=== PATIENT | male | born 1970 | race Caucasian/White ===

== ENCOUNTER 2018-09-06 15:00 | Inpatient (IN) | payer OTHER ==
[2018-09-06 17:07] VITALS: BMI 36.6
--- NOTE | 2018-09-06 20:43 | HP ---
CIWA Score - Admission Criteria OASAS Guidelines: Admission for Medically Managed Detox: Requires at least one of the followin. CIWA greater than 12 2. Seizures within the past 24 hours 3. Delirium tremens within the past 24 hours 4. Hallucinations within the past 24 hours 5. Acute intervention needed for co occurring medical disorder 6. Acute intervention needed for co occurring psychiatric disorder 7. Severe withdrawal that cannot be handled at a lower level of care (continued vomiting, continued diarrhea, abnormal vital signs) requiring intravenous medication and/or fluids 8. Admission ROS BHS - HPI Chief Complaint: Seeking admission to Rehab. Allergies/Adverse Reactions: Allergies Allergy/AdvReac Type Severity Reaction Status Date / Time No Known Allergies Allergy Verified 09/06/18 17:41 History of Present Illness: 48 years old male with a history of alcohol and benzodiazepine dependence is seeking admission to rehab. Patient WAS in Rehab. 5 years ago at [facility]. He has medical history of depression. He reports suicide at age 32 and denies suicidal ideation at this time. This is his first admission at [facility]. He is on methadone 120mg tablet oral at [facility]. LDM is today, 09/10/2018. Dose is to be confirmed by the nurse. Exam Limitations: No Limitations - Ebola screening Have you traveled outside of the country in the last 21 days: No Have you had contact with anyone from an Ebola affected area: No Have you been sick,other than usual withdrawal symptoms: No Do you have a fever: No - Review of Systems Constitutional: No Symptoms Reported EENT: reports: No Symptoms Reported Respiratory: reports: No Symptoms reported Cardiac: reports: No Symptoms Reported GI: reports: No Symptoms Reported : reports: No Symptoms Reported Musculoskeletal: reports: No Symptoms Reported Integumentary: reports: No Symptoms Reported Neuro: reports: No Symptoms reported Endocrine: reports: No Symptoms Reported Hematology: reports: No Symptoms Reported Psychiatric: reports: No Sypmtoms Reported, Mood/Affect Appropiate, Orientated x3 Other Systems: Reviewed and Negative Patient History - Patient Medical History Hx Anemia: No Hx Asthma: No Hx Chronic Obstructive Pulmonary Disease (COPD): No Hx Cancer: No Hx Cardiac Disorders: No Hx Congestive Heart Failure: No Hx Hypertension: No Hx Hypercholesterolemia: No HX Cerebrovascular Accident: No Hx Seizures: Yes Hx Dementia: No Hx Diabetes: No Hx Gastrointestinal Disorders: No Hx Liver Disease: No Hx Genitourinary Disorders: No Hx Sexually Transmitted Disorders: No Hx Renal Disease (ESRD): No Hx Thyroid Disease: No Hx Human Immunodeficiency Virus (HIV): No (Negative 2018) Hx Hepatitis C: No Hx Depression: Yes (Seroquel, Gabapentin) Hx Suicide Attempt: Yes (Attempt at age 32, denies suicidal ideation at this time) Hx Bipolar Disorder: Yes (Seroquel, Gabapentin) Hx Schizophrenia: No - Patient Surgical History Past Surgical History: No - PPD History Previous Implant?: Yes Documented Results: Negative w/o proof Implanted On Prior [facility] Admission?: No PPD to be Administered?: Yes - Reproductive History Patient is a Female of Child Bearing Age (11 -55 yrs old): No (MALE) - Smoking Cessation Smoking history: Current every day smoker Have you smoked in the past 12 months: Yes Aproximately how many cigarettes per day: 10 Hx Chewing Tobacco Use: No Initiated information on smoking cessation: Yes 'Breaking Loose' booklet given: 09/06/18 - Substance & Tx. History Hx Alcohol Use: Yes Hx Substance Use: Yes Substance Use Type: Alcohol, Marijuana, Prescribed Hx Substance Use Treatment: Yes ([facility], [place]) - Substances Abused Alcohol Route: Oral Frequency: Daily Amount used: BEER - 40 oz João 45, Vodka 1 Pint Age of first use: 13 Date of Last Use: 08/30/18 Family Disease History - Family Disease History Family History: Denies Admission Physical Exam BHS - Vital Signs Vital Signs: Vital Signs - 24 hr 09/06/18 17:02 Temperature 98.9 F Pulse Rate 93 H Respiratory 18 Rate Blood Pressure 129/82 - Physical General Appearance: Yes: No Apparent Distress HEENTM: Yes: EOMI, Normal ENT Inspection, Normocephalic, Normal Voice, DEA Respiratory: Yes: Lungs Clear, Normal Breath Sounds, No Respiratory Distress Neck: Yes: Supple Breast: Yes: Breast Exam Deferred Cardiology: Yes: Regular Rhythm, Regular Rate Abdominal: Yes: Normal Bowel Sounds Genitourinary: Yes: Within Normal Limits Back: Yes: Normal Inspection Musculoskeletal: Yes: Within Normal Limits Extremities: Yes: Normal Inspection Neurological: Yes: track superintendent II-XII NML intact, Alert, Normal Mood/Affect Integumentary: Yes: Warm Lymphatic: Yes: Within Normal Limits - Diagnostic (1) Uncomplicated alcohol dependence Current Visit: Yes Status: Chronic (2) Marijuana dependence Current Visit: Yes Status: Chronic (3) Methadone maintenance therapy patient Current Visit: Yes Status: Chronic (4) Nicotine dependence Current Visit: Yes Status: Chronic Qualifiers: Nicotine product type: cigarettes Substance use status: uncomplicated Qualified Code(s): F17.210 - Nicotine dependence, cigarettes, uncomplicated (5) Depression Current Visit: Yes Status: Chronic Cleared for Admission [facility] - Detox or Rehab [facility] Level of Care: Observation Bed Claeared for Rehab Admission: Yes [facility] Breath Alcohol Content Breath Alcohol Content: 0 Urine Drug Screen - Results Drug Screen Negative: No Urine Drug Screen Results: THC-Marijuana, BAR-Barbiturates, MTD-Methadone Inpatient Rehab Admission - Initial Determination Are CD services needed?: Yes Free of communicable disease: Yes Not in need of hospitalization: Yes - Rehab Admission Criteria Previous failed treatment: Yes Poor recovery environment: Yes Comorbidities: Yes Lacks judgement: No Patient is meeting Inpatient Rehab admission criteria:: Yes
[2018-09-06] MEDS ORDERED: ACETAMINOPHEN 325 MG TABLET (FP) PO PRN (20:56)
[2018-09-06] MEDS ORDERED: NICOTINE POLACRILEX 2 MG GUM BUC PRN (20:56)
[2018-09-06] MEDS ORDERED: MAGNESIUM CITRATE 300 ML BOTTLE PO PRN (20:56)
[2018-09-06] MEDS ORDERED: LOPERAMIDE HCL 2 MG CAPSULE PO PRN (20:56)
[2018-09-06] MEDS ORDERED: P-EPHED 60MG/TRIPROLIDI 2.5MG TABLET PO PRN (20:56)
[2018-09-06] MEDS ORDERED: MAG HYDROX/AL HYDROX/SIMETH 30 ML UNIT-DOSE CUP PO PRN (20:56)
--- NOTE | 2018-09-06 21:15 | HP ---
CIWA Score Nausea/Vomitin (vomiting x 2) Muscle Tremors: 3 Anxiety: 3 Agitation: 1-Slight > Activity Paroxysmal Sweats: 1-Minimal Palms Moist Orientation: 2-Disoriented Date<2 days Tacttile Disturbances: 0-None Auditory Disturbances: 0-None Visual Disturbances: 0-None Headache: 2-Mild CIWA-Ar Total Score: 15 - Admission Criteria OASAS Guidelines: Admission for Medically Managed Detox: Requires at least one of the followin. CIWA greater than 12 2. Seizures within the past 24 hours 3. Delirium tremens within the past 24 hours 4. Hallucinations within the past 24 hours 5. Acute intervention needed for co occurring medical disorder 6. Acute intervention needed for co occurring psychiatric disorder 7. Severe withdrawal that cannot be handled at a lower level of care (continued vomiting, continued diarrhea, abnormal vital signs) requiring intravenous medication and/or fluids 8. Admission ROS [facility] Chief Complaint: Alcohol withdrawal symptoms Allergies/Adverse Reactions: Allergies Allergy/AdvReac Type Severity Reaction Status Date / Time No Known Allergies Allergy Verified 09/06/18 17:41 History of Present Illness: 48 years old male with a long history of alcohol dependence is seeking admission to detox. Patient has been in multiple detox, last at [place], [place]. He reports 14 years of sobriety.He has medical history of asthma and depression. He denies suicidal ideation at this time. This is his first admission to [facility]. - Ebola screening Have you traveled outside of the country in the last 21 days: No Have you had contact with anyone from an Ebola affected area: No Have you been sick,other than usual withdrawal symptoms: No Do you have a fever: No Patient History - Patient Medical History Hx Anemia: No Hx Asthma: No Hx Chronic Obstructive Pulmonary Disease (COPD): No Hx Cancer: No Hx Cardiac Disorders: No Hx Congestive Heart Failure: No Hx Hypertension: No Hx Hypercholesterolemia: No HX Cerebrovascular Accident: No Hx Seizures: Yes Hx Dementia: No Hx Diabetes: No Hx Gastrointestinal Disorders: No Hx Liver Disease: No Hx Genitourinary Disorders: No Hx Sexually Transmitted Disorders: No Hx Renal Disease (ESRD): No Hx Thyroid Disease: No Hx Human Immunodeficiency Virus (HIV): No (Negative 2018) Hx Hepatitis C: No Hx Depression: Yes (Seroquel, Gabapentin) Hx Suicide Attempt: Yes (Attempt at age 32, denies suicidal ideation at this time) Hx Bipolar Disorder: Yes (Seroquel, Gabapentin) Hx Schizophrenia: No - Patient Surgical History Past Surgical History: No - PPD History Previous Implant?: Yes Documented Results: Negative w/o proof Implanted On Prior R Admission?: No - Smoking Cessation Smoking history: Current every day smoker Have you smoked in the past 12 months: Yes Aproximately how many cigarettes per day: 10 Hx Chewing Tobacco Use: No Initiated information on smoking cessation: Yes - Substances Abused Alcohol Route: Oral Frequency: Daily Amount used: BEER - 40 oz João 45, Vodka 1 Pint Age of first use: 13 Date of Last Use: 08/30/18 Admission Physical Exam BHS - Vital Signs Vital Signs: Vital Signs - 24 hr 09/06/18 17:02 Temperature 98.9 F Pulse Rate 93 H Respiratory 18 Rate Blood Pressure 129/82 - Diagnostic (1) Uncomplicated alcohol dependence Current Visit: Yes Status: Chronic (2) Marijuana dependence Current Visit: Yes Status: Chronic (3) Methadone maintenance therapy patient Current Visit: Yes Status: Chronic (4) Nicotine dependence Current Visit: Yes Status: Chronic Qualifiers: Nicotine product type: cigarettes Substance use status: uncomplicated Qualified Code(s): F17.210 - Nicotine dependence, cigarettes, uncomplicated (5) Depression Current Visit: Yes Status: Chronic BHS Breath Alcohol Content Breath Alcohol Content: 0 Urine Drug Screen - Results Drug Screen Negative: No Urine Drug Screen Results: THC-Marijuana, BAR-Barbiturates, MTD-Methadone
[2018-09-06] MEDS ORDERED: MELATONIN 5 MG TABLETS PO PRN (22:00)
[2018-09-06] MEDS ORDERED: TUBERCULIN PPD 5 TU/0.1ML VIAL ID ONE (22:52)
[2018-09-06] MEDS: IBUPROFEN 400 MG TABLET (FP) PO PRN (22:52)
[2018-09-06] MEDS: THIAMINE HCL 100 MG TABLET (FP) PO SCH (22:52)
[2018-09-07 02:55] LABS: URINE APPEARANCE CLEAR; URINE BILIRUBIN NEGATIVE (<2.0 mg/dL); URINE COLOR YELLOW; URINE GLUCOSE (UA) NEGATIVE (NEGATIVE); URINE KETONE NEGATIVE (NEGATIVE); URINE LEUK ESTERASE NEGATIVE (NEGATIVE); URINE NITRITE NEGATIVE (NEGATIVE); URINE PROTEIN NEGATIVE (NEGATIVE); URINE UROBILINOGEN NEGATIVE mg/dL (0.2-1.0)
[2018-09-07] MEDS: NICOTINE 14 MG/24 HOURS TOPICAL PATCH TD SCH (10:17)
[2018-09-07] MEDS: PRENATAL VITAMINS W/ FOLIC ACID TABLET (FP) PO SCH (10:17)
[2018-09-07] MEDS ORDERED: METHADONE HCL 40 MG DISPERSABLE TABLET PO ONE (11:35)
--- NOTE | 2018-09-07 11:56 | EKG ---
Test Reason : Blood Pressure : / mmHG Vent. Rate : 067 BPM Atrial Rate : 067 BPM P-R Int : 180 ms QRS Dur : 092 ms QT Int : 436 ms P-R-T Axes : 036 063 058 degrees QTc Int : 460 ms NORMAL SINUS RHYTHM NORMAL ECG NO PREVIOUS ECGS AVAILABLE Confirmed by RICA ROSALES MD ([id number]) on 09/07/2018 11:55:49 AM Referred By: Confirmed By:RICA ROSALES MD
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
[2018-09-07] MEDS: QUEtiapine FUMARATE 400 MG TABLET PO SCH ×2 (13:53→21:16)
[2018-09-07] MEDS: GABAPENTIN 400 MG CAPSULE (FP) PO SCH ×2 (13:54→21:16)
[2018-09-07 16:12] LABS: HEMATOCRIT 41.4 % (35.4-49); MCH 29.3 pg (25.7-33.7); MCHC 33.9 g/dl (32.0-35.9); MEAN CELL VOLUME 86.3 fl (80-96); MEAN PLT VOLUME 7.6 fl (7.5-11.1); PLATELET COUNT 397 K/MM3 (134-434); WHITE BLOOD COUNT 10.1 K/mm3 (4.0-10.0)
[2018-09-07 16:21] LABS: ALBUMIN 3.9 g/dl (3.4-5.0); ALK PHOS 84 U/L (45-117); ANION GAP 7 MMOL/L (8-16); BILIRUBIN,TOTAL 0.3 mg/dL (0.2-1); BLOOD UREA NITROGEN 17 mg/dL (7-18); CALCIUM 9.3 mg/dL (8.5-10.1); CHLORIDE 102 mmol/L (98-107); CO2 29 mmol/L (21-32); CREATININE 0.9 mg/dL (0.55-1.3); GLUCOSE,RANDOM 102 mg/dL (74-106); POTASSIUM 4.2 mmol/L (3.5-5.1); SGOT/AST 22 U/L (15-37); SGPT/ALT 32 U/L (13-61); SODIUM 138 mmol/L (136-145); TOT PROT 7.6 g/dl (6.4-8.2)
[2018-09-07] MEDS: THIAMINE HCL 100 MG TABLET (FP) PO SCH (21:16)
[2018-09-08] MEDS: METHADONE HCL 40 MG DISPERSABLE TABLET PO SCH (06:35)
[2018-09-08] MEDS: QUEtiapine FUMARATE 400 MG TABLET PO SCH ×2 (09:49→21:21)
[2018-09-08] MEDS: NICOTINE 14 MG/24 HOURS TOPICAL PATCH TD SCH (09:49)
[2018-09-08] MEDS: GABAPENTIN 400 MG CAPSULE (FP) PO SCH ×2 (09:49→21:21)
[2018-09-08] MEDS: PRENATAL VITAMINS W/ FOLIC ACID TABLET (FP) PO SCH (09:49)
[2018-09-08] MEDS: THIAMINE HCL 100 MG TABLET (FP) PO SCH (21:21)
[2018-09-09] MEDS: METHADONE HCL 40 MG DISPERSABLE TABLET PO SCH (06:31)
[2018-09-09] MEDS: MAGNESIUM HYDROX 2400MG/30ML ORAL SUSPENSION 30 ML CUP PO PRN (06:35)
[2018-09-09] MEDS: NICOTINE 14 MG/24 HOURS TOPICAL PATCH TD SCH (09:38)
[2018-09-09] MEDS: PRENATAL VITAMINS W/ FOLIC ACID TABLET (FP) PO SCH (09:38)
[2018-09-09] MEDS: QUEtiapine FUMARATE 400 MG TABLET PO SCH ×2 (09:38→21:15)
[2018-09-09] MEDS: GABAPENTIN 400 MG CAPSULE (FP) PO SCH ×2 (09:38→21:15)
[2018-09-09] MEDS: hydrOXYzine PAMOATE 25 MG CAPSULE (FP) PO PRN (09:39)
[2018-09-09] MEDS: THIAMINE HCL 100 MG TABLET (FP) PO SCH (21:15)
[2018-09-10] MEDS: METHADONE HCL 40 MG DISPERSABLE TABLET PO SCH (06:33)
[2018-09-10] MEDS: MAGNESIUM HYDROX 2400MG/30ML ORAL SUSPENSION 30 ML CUP PO PRN (08:20)
[2018-09-10] MEDS: PRENATAL VITAMINS W/ FOLIC ACID TABLET (FP) PO SCH (09:40)
[2018-09-10] MEDS: QUEtiapine FUMARATE 400 MG TABLET PO SCH ×2 (09:40→21:20)
[2018-09-10] MEDS: GABAPENTIN 400 MG CAPSULE (FP) PO SCH ×2 (09:40→21:20)
[2018-09-10] MEDS: NICOTINE 14 MG/24 HOURS TOPICAL PATCH TD SCH (09:40)
[2018-09-10] MEDS: hydrOXYzine PAMOATE 25 MG CAPSULE (FP) PO PRN ×2 (09:41→21:20)
[2018-09-10] MEDS: THIAMINE HCL 100 MG TABLET (FP) PO SCH (21:20)
[2018-09-11] MEDS: METHADONE HCL 40 MG DISPERSABLE TABLET PO SCH (06:12)
[2018-09-11] MEDS: NICOTINE 14 MG/24 HOURS TOPICAL PATCH TD SCH (10:50)
[2018-09-11] MEDS: PRENATAL VITAMINS W/ FOLIC ACID TABLET (FP) PO SCH (10:50)
[2018-09-11] MEDS: QUEtiapine FUMARATE 400 MG TABLET PO SCH ×2 (10:50→21:18)
[2018-09-11] MEDS: GABAPENTIN 400 MG CAPSULE (FP) PO SCH ×2 (10:50→21:18)
[2018-09-11] MEDS: hydrOXYzine PAMOATE 25 MG CAPSULE (FP) PO PRN ×2 (10:52→21:19)
[2018-09-11] MEDS: THIAMINE HCL 100 MG TABLET (FP) PO SCH (21:18)
[2018-09-12] MEDS: IBUPROFEN 400 MG TABLET (FP) PO PRN (03:05)
[2018-09-12] MEDS: METHADONE HCL 40 MG DISPERSABLE TABLET PO SCH (06:09)
[2018-09-12] MEDS: PRENATAL VITAMINS W/ FOLIC ACID TABLET (FP) PO SCH (10:35)
[2018-09-12] MEDS: hydrOXYzine PAMOATE 25 MG CAPSULE (FP) PO PRN ×2 (10:35→21:29)
[2018-09-12] MEDS: QUEtiapine FUMARATE 400 MG TABLET PO SCH ×2 (10:35→21:28)
[2018-09-12] MEDS: NICOTINE 14 MG/24 HOURS TOPICAL PATCH TD SCH (10:35)
[2018-09-12] MEDS: GABAPENTIN 400 MG CAPSULE (FP) PO SCH ×2 (10:35→21:28)
[2018-09-12] MEDS: THIAMINE HCL 100 MG TABLET (FP) PO SCH (21:28)
[2018-09-13] MEDS: METHADONE HCL 40 MG DISPERSABLE TABLET PO SCH (06:13)
[2018-09-13] MEDS: GABAPENTIN 400 MG CAPSULE (FP) PO SCH ×2 (10:09→21:21)
[2018-09-13] MEDS: QUEtiapine FUMARATE 400 MG TABLET PO SCH ×2 (10:09→21:21)
[2018-09-13] MEDS: NICOTINE 14 MG/24 HOURS TOPICAL PATCH TD SCH (10:09)
[2018-09-13] MEDS: PRENATAL VITAMINS W/ FOLIC ACID TABLET (FP) PO SCH (10:09)
[2018-09-13] MEDS: hydrOXYzine PAMOATE 25 MG CAPSULE (FP) PO PRN ×2 (10:11→21:21)
[2018-09-13] MEDS: guaiFENesin/D-METHORPHAN HB 10 ML UNIT-DOSE CUPS PO PRN (17:37)
[2018-09-13] MEDS: IBUPROFEN 400 MG TABLET (FP) PO PRN (17:37)
[2018-09-13] MEDS: MENTHOL/PHENOL 1 EACH UD MM PRN (17:39)
[2018-09-13] MEDS: THIAMINE HCL 100 MG TABLET (FP) PO SCH (21:21)
[2018-09-14] MEDS: METHADONE HCL 40 MG DISPERSABLE TABLET PO SCH (06:18)
[2018-09-14] MEDS: hydrOXYzine PAMOATE 25 MG CAPSULE (FP) PO PRN ×2 (09:55→21:26)
[2018-09-14] MEDS: QUEtiapine FUMARATE 400 MG TABLET PO SCH ×2 (09:55→21:24)
[2018-09-14] MEDS: NICOTINE 14 MG/24 HOURS TOPICAL PATCH TD SCH (09:55)
[2018-09-14] MEDS: GABAPENTIN 400 MG CAPSULE (FP) PO SCH ×2 (09:55→21:24)
[2018-09-14] MEDS: PRENATAL VITAMINS W/ FOLIC ACID TABLET (FP) PO SCH (09:55)
[2018-09-14] MEDS: THIAMINE HCL 100 MG TABLET (FP) PO SCH (21:27)
[2018-09-15] MEDS: METHADONE HCL 40 MG DISPERSABLE TABLET PO SCH (06:12)
[2018-09-15] MEDS: MENTHOL/PHENOL 1 EACH UD MM PRN (08:31)
[2018-09-15] MEDS: NICOTINE 14 MG/24 HOURS TOPICAL PATCH TD SCH (09:53)
[2018-09-15] MEDS: GABAPENTIN 400 MG CAPSULE (FP) PO SCH ×2 (09:53→21:28)
[2018-09-15] MEDS: PRENATAL VITAMINS W/ FOLIC ACID TABLET (FP) PO SCH (09:54)
[2018-09-15] MEDS: hydrOXYzine PAMOATE 25 MG CAPSULE (FP) PO PRN ×2 (09:55→21:29)
[2018-09-15] MEDS: QUEtiapine FUMARATE 400 MG TABLET PO SCH ×2 (09:57→21:28)
[2018-09-15] MEDS: guaiFENesin/D-METHORPHAN HB 10 ML UNIT-DOSE CUPS PO PRN (09:57)
--- NOTE | 2018-09-15 10:38 | PN ---
S Progress Note (SOAP) Subjective: C/o sores on ears as a result of rubbing dry skin. Has had this issue off and on for past year. Has been putting A&D ointment on ears. C/o sore throat x 3 days. Denies cough. Objective: A&O x 3. No nasal congestion. Lungs CTA. HR: RR. Throat w/o erythema, lesions or exudate Superficial abrasion-like open areas on (L) and (R) ear lobes. No discharge noted. Vital Signs 09/15/18 09/15/18 03:30 07:06 Temperature 98.7 F Pulse Rate 75 Respiratory 18 18 Rate Blood Pressure 123/85 Lab Results WBC 10.1 K/mm3 (4.0-10.0) H 09/07/18 09:33 RBC 4.80 M/mm3 (4.00-5.60) 09/07/18 09:33 Hgb 14.0 GM/dL (11.7-16.9) 09/07/18 09:33 Hct 41.4 % (35.4-49) 09/07/18 09:33 MCV 86.3 fl (80-96) 09/07/18 09:33 MCHC 33.9 g/dl (32.0-35.9) 09/07/18 09:33 RDW 15.0 % (11.9-15.9) 09/07/18 09:33 Plt Count 397 K/MM3 (134-434) 09/07/18 09:33 Sodium 138 mmol/L (136-145) 09/07/18 09:33 Potassium 4.2 mmol/L (3.5-5.1) 09/07/18 09:33 Chloride 102 mmol/L (98-107) 09/07/18 09:33 Carbon Dioxide 29 mmol/L (21-32) 09/07/18 09:33 Anion Gap 7 MMOL/L (8-16) L 09/07/18 09:33 BUN 17 mg/dL (7-18) 09/07/18 09:33 Creatinine 0.9 mg/dL (0.55-1.3) 09/07/18 09:33 Random Glucose 102 mg/dL (74-106) 09/07/18 09:33 Calcium 9.3 mg/dL (8.5-10.1) 09/07/18 09:33 Labs reviewed. Assessment: Ear abrasion. Early poly-substance use remission Plan: Bacitracin to both ears BID Hydrortisone cream to both ears BID. Encourage Saline gargles 2-3 x day and QHS prn as directed Continue cough drops.
[2018-09-15] MEDS: THIAMINE HCL 100 MG TABLET (FP) PO SCH (21:28)
[2018-09-15] MEDS: BACITRACIN 0.9 GM PACKET TP SCH (21:30)
[2018-09-15] MEDS: HYDROCORTISONE 1% TOPICAL CREAM 30 GM TUBE TP PRN (21:32)
[2018-09-16] MEDS: METHADONE HCL 40 MG DISPERSABLE TABLET PO SCH (06:04)
[2018-09-16] MEDS: NICOTINE 14 MG/24 HOURS TOPICAL PATCH TD SCH (09:56)
[2018-09-16] MEDS: PRENATAL VITAMINS W/ FOLIC ACID TABLET (FP) PO SCH (09:56)
[2018-09-16] MEDS: QUEtiapine FUMARATE 400 MG TABLET PO SCH ×2 (09:59→21:24)
[2018-09-16] MEDS: GABAPENTIN 400 MG CAPSULE (FP) PO SCH ×2 (09:59→21:24)
[2018-09-16] MEDS: BACITRACIN 0.9 GM PACKET TP SCH ×2 (10:52→21:24)
[2018-09-16] MEDS: hydrOXYzine PAMOATE 25 MG CAPSULE (FP) PO PRN (17:22)
[2018-09-16] MEDS: THIAMINE HCL 100 MG TABLET (FP) PO SCH (21:24)
[2018-09-17] MEDS: METHADONE HCL 40 MG DISPERSABLE TABLET PO SCH (06:15)
[2018-09-17] MEDS: NICOTINE 14 MG/24 HOURS TOPICAL PATCH TD SCH (09:46)
[2018-09-17] MEDS: QUEtiapine FUMARATE 400 MG TABLET PO SCH ×2 (09:46→21:02)
[2018-09-17] MEDS: PRENATAL VITAMINS W/ FOLIC ACID TABLET (FP) PO SCH (09:46)
[2018-09-17] MEDS: GABAPENTIN 400 MG CAPSULE (FP) PO SCH ×2 (09:46→21:02)
[2018-09-17] MEDS: BACITRACIN 0.9 GM PACKET TP SCH ×2 (09:46→21:02)
[2018-09-17] MEDS: HYDROCORTISONE 1% TOPICAL CREAM 30 GM TUBE TP PRN ×2 (09:49→21:04)
[2018-09-17] MEDS: hydrOXYzine PAMOATE 25 MG CAPSULE (FP) PO PRN (15:34)
[2018-09-17] MEDS: THIAMINE HCL 100 MG TABLET (FP) PO SCH (21:02)
[2018-09-18] MEDS: METHADONE HCL 40 MG DISPERSABLE TABLET PO SCH (06:16)
[2018-09-18] MEDS: QUEtiapine FUMARATE 400 MG TABLET PO SCH ×2 (10:19→21:22)
[2018-09-18] MEDS: HYDROCORTISONE 1% TOPICAL CREAM 30 GM TUBE TP PRN (10:19)
[2018-09-18] MEDS: PRENATAL VITAMINS W/ FOLIC ACID TABLET (FP) PO SCH (10:19)
[2018-09-18] MEDS: NICOTINE 14 MG/24 HOURS TOPICAL PATCH TD SCH (10:19)
[2018-09-18] MEDS: GABAPENTIN 400 MG CAPSULE (FP) PO SCH ×2 (10:19→21:22)
[2018-09-18] MEDS: BACITRACIN 0.9 GM PACKET TP SCH ×2 (10:19→21:22)
[2018-09-18] MEDS: hydrOXYzine PAMOATE 25 MG CAPSULE (FP) PO PRN ×2 (10:20→21:23)
[2018-09-18] MEDS: THIAMINE HCL 100 MG TABLET (FP) PO SCH (21:22)
[2018-09-19] MEDS: METHADONE HCL 40 MG DISPERSABLE TABLET PO SCH (06:05)
[2018-09-19] MEDS: hydrOXYzine PAMOATE 25 MG CAPSULE (FP) PO PRN ×2 (10:26→21:39)
[2018-09-19] MEDS: NICOTINE 14 MG/24 HOURS TOPICAL PATCH TD SCH (10:26)
[2018-09-19] MEDS: PRENATAL VITAMINS W/ FOLIC ACID TABLET (FP) PO SCH (10:26)
[2018-09-19] MEDS: GABAPENTIN 400 MG CAPSULE (FP) PO SCH ×2 (10:26→21:37)
[2018-09-19] MEDS: QUEtiapine FUMARATE 400 MG TABLET PO SCH ×2 (10:26→21:37)
[2018-09-19] MEDS: BACITRACIN 0.9 GM PACKET TP SCH ×2 (10:27→21:37)
[2018-09-19] MEDS: THIAMINE HCL 100 MG TABLET (FP) PO SCH (21:38)
[2018-09-20] MEDS: METHADONE HCL 40 MG DISPERSABLE TABLET PO SCH (06:07)
[2018-09-20] MEDS: NICOTINE 14 MG/24 HOURS TOPICAL PATCH TD SCH (09:59)
[2018-09-20] MEDS: GABAPENTIN 400 MG CAPSULE (FP) PO SCH ×2 (09:59→21:34)
[2018-09-20] MEDS: PRENATAL VITAMINS W/ FOLIC ACID TABLET (FP) PO SCH (10:00)
[2018-09-20] MEDS: QUEtiapine FUMARATE 400 MG TABLET PO SCH ×2 (10:00→21:34)
[2018-09-20] MEDS: BACITRACIN 0.9 GM PACKET TP SCH ×2 (10:00→21:34)
[2018-09-20] MEDS: hydrOXYzine PAMOATE 25 MG CAPSULE (FP) PO PRN ×2 (10:00→21:34)
[2018-09-20] MEDS: HYDROCORTISONE 1% TOPICAL CREAM 30 GM TUBE TP PRN (10:01)
[2018-09-20] MEDS: THIAMINE HCL 100 MG TABLET (FP) PO SCH (22:16)
[2018-09-21] MEDS: METHADONE HCL 40 MG DISPERSABLE TABLET PO SCH (06:07)
[2018-09-21] MEDS: BACITRACIN 0.9 GM PACKET TP SCH ×2 (10:27→21:31)
[2018-09-21] MEDS: PRENATAL VITAMINS W/ FOLIC ACID TABLET (FP) PO SCH (10:27)
[2018-09-21] MEDS: NICOTINE 14 MG/24 HOURS TOPICAL PATCH TD SCH (10:27)
[2018-09-21] MEDS: QUEtiapine FUMARATE 400 MG TABLET PO SCH ×2 (10:27→21:31)
[2018-09-21] MEDS: GABAPENTIN 400 MG CAPSULE (FP) PO SCH ×2 (10:27→21:31)
[2018-09-21] MEDS: hydrOXYzine PAMOATE 25 MG CAPSULE (FP) PO PRN ×2 (10:28→21:32)
[2018-09-21] MEDS: THIAMINE HCL 100 MG TABLET (FP) PO SCH (21:31)
[2018-09-21] MEDS: HYDROCORTISONE 1% TOPICAL CREAM 30 GM TUBE TP PRN (21:33)
[2018-09-22] MEDS: METHADONE HCL 40 MG DISPERSABLE TABLET PO SCH (06:04)
[2018-09-22 07:02] VITALS: BP 110/82; PULSE 79; TEMP 98.1
--- NOTE | 2018-09-22 08:13 | PN ---
Psychiatric Progress Note Vital Signs: Vital Signs Period Temp Pulse Resp BP Sys/Rich Pulse Ox Last 24 Hr 98.1 F 79 18-20 110/82 Date of Session: 09/22/18 Chief Complaint:: "Discharge" HPI: Patient admtted to N for alcohol, cocaine, and benzodiazepine dependence. ROS: Seizures, herniated disc in the left lower lumbar. Current Medications: Active Medications Generic Name Dose Route Start Last Admin Trade Name Freq PRN Reason Stop Dose Admin Acetaminophen 650 mg 09/06/18 20:56 09/13/18 21:23 Tylenol - PO 650 mg Q4H PRN Administration FEVER Al Hydroxide/Mg Hydroxide 30 ml 09/06/18 20:56 Mylanta Oral Suspension - PO Q6H PRN DYSPEPSIA Bacitracin 0.9 gm 09/15/18 22:00 09/21/18 21:31 Bacitracin - TP 0.9 gm BID CORY Administration Eucalyptus/Menthol/Phenol/Sorbitol 1 each 09/06/18 20:56 09/15/18 08:31 Cepastat Lozenge - MM 1 each Q4H PRN Administration SORE THROAT Gabapentin 800 mg 09/07/18 13:45 09/21/18 21:31 Neurontin - PO 800 mg BID CORY Administration Guaifenesin 10 ml 09/06/18 20:56 09/15/18 09:57 Robitussin Dm - PO 10 ml Q6H PRN Administration COUGH Hydrocortisone 1 applic 09/15/18 10:44 09/21/18 21:33 Hytone 1% Cream - TP 1 dose BID PRN Administration FOR ITCHING Hydroxyzine Pamoate 25 mg 09/07/18 13:05 09/21/18 21:32 Vistaril - PO 25 mg Q6H PRN Administration ANXIETY Ibuprofen 400 mg 09/06/18 20:56 09/13/18 17:37 Motrin - PO 400 mg Q6H PRN Administration Pain level 4-6 Loperamide HCl 4 mg 09/06/18 20:56 Imodium - PO Q6H PRN DIARRHEA Magnesium Citrate 300 ml 09/06/18 20:56 Citroma - PO Q48H PRN CONSTIPATION Magnesium Hydroxide 30 ml 09/06/18 20:56 09/10/18 08:20 Milk Of Magnesia - PO 30 ml DAILY PRN Administration CONSTIPATION Melatonin 5 mg 09/06/18 22:00 09/06/18 22:52 Melatonin PO 5 mg HS PRN Administration INSOMNIA Methadone HCl 120 mg 09/21/18 06:00 09/22/18 06:04 Dolophine - PO 09/27/18 05:59 120 mg DAILY@0600 CORY Administration Nicotine 14 mg 09/07/18 10:00 09/21/18 10:27 Nicoderm Patch - TD 14 mg DAILY CORY Administration Nicotine Polacrilex 2 mg 09/06/18 20:56 Nicorette Gum - BUC Q2H PRN NICOTINE REPLACEMENT RX Multivit/Folic Acid/Iron 1 tab 09/07/18 10:00 09/21/18 10:27 Vitamins ([facility]) - PO 1 tab DAILY CORY Administration Pseudoephedrine/Triprolidine 1 combo 09/06/18 20:56 09/13/18 17:39 Actifed - PO 1 combo TID PRN Administration NASAL CONGESTION Quetiapine Fumarate 400 mg 09/07/18 13:50 09/21/18 21:31 Seroquel - PO 400 mg BID CORY Administration Thiamine HCl 100 mg 09/06/18 22:00 09/21/18 21:31 Vitamin B1 - PO 100 mg HS CORY Administration Medication(s) Change(s): No. Current Side Effect: No Lab tests ordered: No Lab tests reviewed: Yes Provider note:: Patient able to complete rehab on 09/22/18. Patient able to meet his treatment goals and will continue to address his issues at [facility] in [place], [place]. Patient states that rehab was effective and is now looking forward to attending his outpatient clinic. Patient able to verbalize the importance of changing his behavior and the need for more structure in his life. A 30 day prescription of seroquel 400mg BID + Gabapentin 800mg BID + Vistaril 25mg prn was electronically sent to patient's pharmacy at [facility], [address] [place] [address]. Patient is stable for discharge on 09/22/18. Total face to face time:: 35 Mental Status Exam - Mental Status Exam Alert and Oriented to: Time, Place, Person Cognitive Function: Good Patient Appearance: Well Groomed Mood: Hopeful Affect: Appropriate Patient Behavior: Appropriate, Cooperative Speech Pattern: Clear, Appropriate Voice Loudness: Normal Thought Process: Intact, Goal Oriented Thought Disorder: Not Present Hallucinations: Denies Suicidal Ideation: Denies Homicidal Ideation: Denies Insight/Judgement: Good Sleep: Well Appetite: Good Muscle strength/Tone: Normal Gait/Station: Normal Psychiatric Treatment Plan - Problem List (1) Bipolar II disorder Current Visit: Yes (2) Methadone maintenance therapy patient Current Visit: Yes (3) Uncomplicated alcohol dependence Current Visit: Yes (4) Substance-induced sleep disorder Current Visit: Yes (5) Marijuana dependence Current Visit: Yes (6) Nicotine dependence Current Visit: Yes Qualifiers: Nicotine product type: cigarettes Substance use status: uncomplicated Qualified Code(s): F17.210 - Nicotine dependence, cigarettes, uncomplicated
[2018-09-22] MEDS: BACITRACIN 0.9 GM PACKET TP SCH (09:36)
[2018-09-22] MEDS: GABAPENTIN 400 MG CAPSULE (FP) PO SCH (09:37)
[2018-09-22] MEDS: QUEtiapine FUMARATE 400 MG TABLET PO SCH (09:37)
[2018-09-22] MEDS: PRENATAL VITAMINS W/ FOLIC ACID TABLET (FP) PO SCH (09:37)
[2018-09-22] MEDS: HYDROCORTISONE 1% TOPICAL CREAM 30 GM TUBE TP PRN (09:37)
[2018-09-22] MEDS: NICOTINE 14 MG/24 HOURS TOPICAL PATCH TD SCH (09:38)
== END 2018-09-22 09:55 | disposition home or self-care (01) | DRG 772 ==
LOC: YASAS 15:00 → Y5N 17:46
PROVIDERS: ADMIT Psychiatry & Neurology Psychiatry; ATTEND Psychiatry & Neurology Psychiatry
PROC: HZ42ZZZ Group Counseling for Substance Abuse Treatment, Cognitive-Behavioral (ICD-10-PCS; principal; 2018-09-06)
DX: F10.20 Alcohol dependence, uncomplicated (principal); F11.20 Opioid dependence, uncomplicated; F13.20 Sedative, hypnotic or anxiolytic dependence, uncomplicated; F12.20 Cannabis dependence, uncomplicated; F17.210 Nicotine dependence, cigarettes, uncomplicated; F19.282 Other psychoactive substance dependence with psychoactive substance-induced sleep disorder; F31.81 Bipolar II disorder; H61.93 Disorder of external ear, unspecified, bilateral; Z86.69 Personal history of other diseases of the nervous system and sense organs; Z91.5 Personal history of self-harm
CPT/HCPCS: 36415; 80053; 81003; 85027; 86593; 93005; 93010